=== PATIENT | female | born 1995 | race American Indian/Alaskan Native ===

== ENCOUNTER 2018-10-16 19:57 | Emergency (ER) | payer OTHER ==
[2018-10-16 22:06] LABS: HCG Qualitative,Urine Negative (Negative)
--- NOTE | 2018-10-16 23:03 | XRay Report ---
LEFT KNEE 3 VIEWS INDICATION / CLINICAL INFORMATION: left knee pain. COMPARISON: None available. FINDINGS: Negative. Signer Name: Benny Carlson MD Signed: 10/16/2018 9:59 PM Workstation Name: [id number]
--- NOTE | 2018-10-16 23:05 | XRay Report ---
LEFT RIB SERIES, 3 VIEWS, 10/16/2018 INDICATION / CLINICAL INFORMATION: left rib pain. COMPARISON: None available. FINDINGS: The left ribs appear intact. No visible rib fracture noted. Left lung is well expanded and clear. No pneumothorax identified. PA chest is unremarkable. Both lungs are well-expanded and are clear. Heart size is normal. IMPRESSION: No evidence for rib fracture. No acute pulmonary disease. Signer Name: Alem Frost MD Signed: 10/16/2018 10:01 PM Workstation Name: [id number]
[2018-10-17] MEDS ORDERED: FLEXERIL PO ONE (02:15)
[2018-10-17] MEDS ORDERED: IBUPROFEN PO ONE (02:15)
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
== END 2018-10-17 03:30 | disposition home or self-care (01) ==
LOC: ED 19:57
DX: S83.92XA Sprain of unspecified site of left knee, initial encounter (principal); S20.212A Contusion of left front wall of thorax, initial encounter; Z79.899 Other long term (current) drug therapy; V89.2XXA Person injured in unspecified motor-vehicle accident, traffic, initial encounter; Y93.89 Activity, other specified; Y92.488 Other paved roadways as the place of occurrence of the external cause; Y99.8 Other external cause status
CPT/HCPCS: 81025; 99284